=== PATIENT | male | born 1965 | race Caucasian/White ===

== ENCOUNTER 2017-10-22 08:35 | Emergency (ER) | payer MEDICAID | END 2017-10-22 10:39 | disposition home or self-care (01) | LOC: FTE 08:35 | DX: Z76.0 Encounter for issue of repeat prescription (principal); Z79.01 Long term (current) use of anticoagulants; Z87.891 Personal history of nicotine dependence; Z79.82 Long term (current) use of aspirin | CPT/HCPCS: 99281; Z7502 ==